=== PATIENT | female | born 1955 | race Caucasian/White ===

== ENCOUNTER 2024-07-11 09:22 | Day surgery (SDC) | payer MEDICARE, OTHER, SELFPAY ==
[2024-06-25 08:21] VITALS: BMI 25.8
--- NOTE | 2024-07-11 | PATH_ITS ---
[facility] Accession Number: [id number] No. of containers..03 Tissue . 01 Material submitted: . PART A: METATARSAL - LEFT 5TH METATARSAL HEAD PART B: METATARSAL - LEFT 5TH METATARSAL SHAFT PART C: METATARSAL - LEFT 5TH METATARSAL SHAFT MASS (SECOND) . 01 Diagnosis: A. LEFT FIFTH METATARSAL HEAD: Inflamed pseudocyst. Fibrinoid necrosis and necrobiotic foci with associated histiocytic granulomatous inflammation. See comment. . B. LEFT FIFTH METATARSAL SHAFT: Inflamed pseudocyst. Fibrinoid necrosis and necrobiotic foci with associated histiocytic granulomatous inflammation. See comment. . C. LEFT FIFTH METATARSAL SHAFT MASS: Inflamed pseudocyst. Fibrinoid necrosis and necrobiotic foci with associated histiocytic granulomatous inflammation. See comment. V 07/18/2024 1340 Local . 01 Comment: A-C: The pseudocyst ikely represents ganglion/bursal cyst with degenerative changes. The necrobiotic foci with palisading histiocytes/granulomatous inflammation likely represents rheumatoid nodules, given the clinical history of rheumatoid arthritis. Crystals are not identified. An infectious etiology, although not favored, also enters the differential diagnosis. Special stains (GMS AND AFB) are negative for fungal and mycobacteraial organisms respectively. Controls stain appropriately. Clinical correlation is recommended. . 01 Electronically signed: . Shila Jones MD, Pathologist NPI- [id number] . 01 Gross description: . A. Received in formalin with two identifiers and fifth left metatarsal head soft tissue mass, are two irregular galvez rubbery soft tissue fragments 2.4 x 0.7 x 0.7 cm inked blue, and 1.0 x 0.7 x 0.5 cm inked green. Sectioning reveals a possible cystic structure with thin smooth johnson. Submitted entirely in cassettes A1-A2. B. Received in formalin with two identifiers and left fifth metatarsal shaft soft tissue mass, is an irregular galvez soft tissue fragment 2.5 x 1.2 x 0.4 cm. Inked blue and sectioned to reveal a galvez, soft cut surface. Submitted entirely in cassettes B1-B2. C. Received in formalin with two identifiers and left fifth metatarsal second shaft mass, is an irregular galvez soft tissue fragment 1.5 x 1.3 x 0.6 cm with jurado-galvez soft cut surface. Submitted entirely in cassette C1. ([id number]) /CIRA 07/13/2024 0441 Local . 01 Microscopic: . B. CD68 highlights the histiocytic inflammation. Control stains appropriately. . * This test was developed and the performance characteristics were validated by [employer]. It has not been cleared or approved by the [place]. Food and Drug Administration. . 01 Pathologist provided ICD-10: M25.872, M21.622, M77.42, M79.672, M19.072, M06.30 . 01 CPT . 276411, 955638, 458829, 921353, 808870, [id number] Specimen Comment: A courtesy copy of this report has been sent to [phone] Performed at: [address] [address], [place], [place] [id number] MD Jose G Zimmerman MD Phone: [phone]
[2024-07-11 09:51] VITALS: BP 144/80; PULSE 89; RESP 16; TEMP 36.6; O2SAT 98; BMI 26.3
[2024-07-11] MEDS: MELOXICAM 7.5 MG TABLET PO (10:03)
[2024-07-11] MEDS: ACETAMINOPHEN 325 MG TABLET 975 MG PO (10:03)
[2024-07-11] MEDS: LACTATED RINGERS 1,000 ML 120 ML IV (10:03)
--- NOTE | 2024-07-11 10:46 | PM.PREOP ---
Pre-operative Note Interval Note History & Physical reviewed/Exam performed by Physician: Yes Changes to H&P: No
--- NOTE | 2024-07-11 10:46 | PM.OP.1 ---
Operative Date/Time/Diagnoses Date of procedure: 07/11/24 Time of procedure: 10:46 Pre-op diagnosis: Left soft tissue mass fifth metatarsal head with tailor's bunionette Post-op diagnosis: same Procedure & Clinicians Procedure: Left fifth metatarsal bunionectomy and soft tissue mass excision. Same procedure as scheduled: Yes Indications: 68-year-old with a painful bump on the outside of the left foot. This appears to be consistent with a bunionette and mass of soft tissue as found under MRI exam. Conservative measures have failed to alleviate her pain and she wished have surgical intervention at this time. We discussed the risks and potential complications, expected outcomes, and alternatives of the procedure. Consent was signed and there were no complications to the procedure at this time. Surgeon: Meghna Chan Click Yes if Unassisted: Yes Anesthesia Type: General Operative Notes Closure Type: primary Specimen(s): other (Pathology specimens from left foot fifth metatarsal: 1)head, 2)shaft, and 3)second shaft specimen. ) Estimated Blood Loss (mL): 20 Blood products transfused: none Procedure in detail: The patient was brought to the operating room and placed on the operating table in the supine position. The tourniquet was placed about the left ankle, and she was secured, padded, and appropriately aligned. After induction of general anesthesia the foot and ankle were prepped and draped in the usual aseptic manner. Local anesthesia using the recorded injectables was obtained to the lateral left foot. The tourniquet was inflated. An incision was made over the dorsal 5th metatarsophalangeal joint (MTPJ). The incision was deepened through subcutaneous tissues being careful to identify and retract all vital neural and vascular structures. All bleeders were cauterized and ligated as necessary. The 5th MTPJ capsule was very scarred dorsolaterally and when incised this exposed the underlying enlarged 5th metatarsal lateral eminence. There were areas of degenerative change to the lateral eminence but not within the joint. The bone was not significantly soft and the cortex was intact. The soft tissue mass was noticed immediately on examination of the lateral soft tissue. This appeared to be an enlargement separate from the capsule, and most distally looked like a fluid-filled cyst. As I followed it plantar proximally, it continued to be separate and did not appear to follow a particular tendon. There was a firm feeling in the largest lobe distally. I teased away neurvascular bundles and again they appeared separate from the soft tissue mass. The distal aspect was resected and passed from the field, and some fluid, serous, released from it. Measured 2.0 x 1.5 decompressed. Second specimen was seen as following the original it tracked further toward plantar lateral shaft, with more enlargement and more contained fluid. This was resected as the first fifth metatarsal shaft specimen. A saw was used to reduce the lateral eminence of the fifth metatarsal head and manual rasp used to smooth the rough edges. The area was irrigated with copious amounts of normal sterile saline. A third plantar extension of the original soft tissue mass was felt then seen and appeared to be firmer without the fluid filled nature, and this was resected and sent as the second fifth metatarsal shaft specimen. Capsule was still thicker but needed for deep closure and protection of the bone. This was performed using 4-0 Vicryl. The tourniquet was deflated. A prompt hyperemic response was seen to the foot. Subcutaneous closure was performed using Vicryl and nylon to the skin. A sterile lightly compressive dressing was placed on the foot. She was then placed in a postoperative shoe and transferred to PACU with vital signs stable and vascular status intact to the foot. Complications: none Post-operative Condition: stable Disposition: PACU Plan for aftercare: Following a period of postoperative monitoring, the patient will be discharged to home on written and oral postoperative instructions including keeping the dressing dry and intact, no greater than 50% weight to the surgical foot, icing and elevating the foot when seated home. DVT prevention techniques have been reviewed.
[2024-07-11] MEDS: CEFAZOLIN 2 GM/100 ML PREMIX 100 ML IV (10:59)
[2024-07-11] MEDS: BUPIVACAINE 0.5% (PF) 30 ML VIAL INJ (11:17)
--- NOTE | 2024-07-11 11:20 | SUR.OPER ---
Supine on padded OR bed, head on pillow, arms secured on padded arm boards at <90 degrees abduction, legs uncrossed, safety belt at thigh, tape over blanket over non-operative leg, gel pad placed under left hip.
[2024-07-11 12:15] VITALS: BP 118/80; PULSE 89; RESP 16; TEMP 36.6; O2SAT 97
[2024-07-11 12:20] VITALS: BP 142/84; PULSE 75; RESP 15; O2SAT 98
[2024-07-11 12:25] VITALS: BP 119/81; PULSE 71; RESP 16; TEMP 36.6; O2SAT 99
[2024-07-11 12:30] VITALS: BP 140/78; PULSE 73; RESP 15; TEMP 36.6; O2SAT 97
[2024-07-11 12:39] VITALS: BP 143/74; PULSE 73; RESP 15; TEMP 36.6; O2SAT 98
== END 2024-07-11 13:12 | disposition home or self-care (01) ==
PROVIDERS: PCP Nurse Practitioner; Referring Provider Podiatrist; Visit Provider Podiatrist
PROC: (CPT 28110; principal; 2024-07-11 10:45)
DX: M21.622 Bunionette of left foot (principal); M25.872 Other specified joint disorders, left ankle and foot
CPT/HCPCS: 28110; J0690; J2704